=== PATIENT | male | born 1955 | race Caucasian/White ===

== ENCOUNTER 2018-01-21 14:46 | Outpatient (CLI) | payer BC, MEDICARE ==
--- NOTE | 2018-01-21 15:54 | RAD ---
RIGHT HIP TWO VIEWS: History: Right hip pain. FINDINGS: Mild joint space narrowing. Moderate osteophytosis and subchondral sclerosis. Femoral height contour is maintained. No acute fracture or dislocation. IMPRESSION: Mild osteoarthritic changes right hip. POS: [facility]
== END 2018-01-21 14:47 | disposition home or self-care (01) ==
LOC: RAD 14:46
PROVIDERS: ATTEND Nurse Practitioner Family
DX: M25.551 Pain in right hip (principal); M16.11 Unilateral primary osteoarthritis, right hip